=== PATIENT | female | born 1995 | race Caucasian/White ===

== ENCOUNTER 2023-10-10 10:08 | Emergency (ER) | payer OTHER ==
[~2023-10-10] VITALS: Ht 160 cm; Wt 84.8 kg
[2023-10-10 10:15] VITALS: BP 110/66; PULSE 81; RESP 19; TEMP 97.8; O2SAT 99
[2023-10-10] MEDS ORDERED: IBUP-2213 PO (10:37)
[2023-10-10] MEDS ORDERED: PRED20TA5 PO (10:37)
[2023-10-10] MEDS: KETOROLAC 60 MG/2 ML VIAL IM ONE (10:47)
== END 2023-10-10 11:10 | disposition home or self-care (01) ==
LOC: MED 10:08
DX: J06.9 Acute upper respiratory infection, unspecified (principal); H10.9 Unspecified conjunctivitis; I10 Essential (primary) hypertension; Z79.899 Other long term (current) drug therapy
CPT/HCPCS: 81025; 96372; 99283; J1885